=== PATIENT | female | born 1955 | race Caucasian/White ===

== ENCOUNTER 2024-07-22 13:36 | Emergency (ER) | payer OTHER ==
[~2024-07-22] VITALS: Ht 166.4 cm; Wt 75.9 kg
[2024-07-22 14:25] LABS: BASOPHILS % (AUTO) 0.6 % (0-1); EOSINOPHILS # (AUTO) 0.1 X10'3 (0-0.9); EOSINOPHILS % (AUTO) 1.1 % (0-6); HEMATOCRIT 44.6 % (35.0-45.0); HEMOGLOBIN 14.9 g/dl (12.0-16.0); LYMPHOCYTES # (AUTO) 1.7 X10'3 (1.1-4.8); LYMPHOCYTES % (AUTO) 28.3 % (21-51); MEAN CORPUSCULAR HGB CONC 33.4 g/dL (33.0-36.5); MEAN CORPUSCULAR VOLUME 89.8 FL (78-98); MEAN PLATELET VOLUME 8.1 FL (7.4-10.4); MONOCYTES # (AUTO) 0.4 X10'3 (0-0.9); MONOCYTES % (AUTO) 6.1 % (2-12); NEUTROPHILS # (AUTO) 3.9 X10'3 (1.8-7.7); NEUTROPHILS % (AUTO) 63.9 % (42-75); PLATELET COUNT 266 X10'3 (140-440); RED BLOOD COUNT 4.96 X10'6 (4.20-5.60); RED CELL DISTRIBUTION WIDTH 13.9 % (11.5-14.5); WHITE BLOOD COUNT 6.1 X10'3 (4.5-11.0)
[2024-07-22 14:45] LABS: ALBUMIN 4.1 G/DL (3.4-5.0); ANION GAP 10 (8-16); BLOOD UREA NITROGEN 16 MG/DL (7-18); BUN/CREATININE RATIO 18.8 (10.0-20.0); CALCIUM 9.4 MG/DL (8.5-10.1); CHLORIDE 106 MMOL/L (99-107); CREATININE 0.85 MG/DL (0.40-0.90); ETHANOL < 10 MG/DL (<10); GLUCOSE 148 MG/DL (70-104); POTASSIUM 3.5 MMOL/L (3.5-5.1); SODIUM 142 MMOL/L (135-145); THYROID STIMULATING HORMONE 1.33 ulU/ml (0.34-4.50); TOTAL CARBON DIOXIDE 25.9 MMOL/L (24-32); eCRCL 57 ML/MIN; eGFR 66 ML/MIN
[2024-07-22 15:56] LABS: BILIRUBIN,URINE SMALL (Neg); CLARITY,URINE CLEAR (Clear); COLOR,URINE YELLOW (Yellow); GLUCOSE, URINE NEGATIVE (Neg); KETONES,URINE NEGATIVE (Neg); LEUKOCYTE ESTERASE ,URINE SMALL (Neg); NITRITES, URINE NEGATIVE (Neg); OCCULT BLOOD,URINE NEGATIVE (Neg); PH,URINE 5.5 (4.8-8.0); PROTEIN,URINE NEGATIVE (Neg); UROBILINOGEN,URINE 0.2 E.U/dL (0.2-1.0)
[2024-07-22 16:15] LABS: UA COLLECTION TYPE CLN CATCH MIDSTREAM
[2024-07-22 16:16] LABS: URINE AMPHETAMINE SCREEN NEGATIVE (Neg); URINE BARBITUATE SCREEN NEGATIVE (Neg); URINE BENZODIAZEPINES SCREEN POSITIVE (Neg); URINE CANNABINOID SCREEN NEGATIVE (Neg); URINE COCAINE SCREEN NEGATIVE (Neg); URINE METHADONE SCREEN NEGATIVE (Neg); URINE OPIATE SCREEN NEGATIVE (Neg); URINE PHENCYCLIDINE SCREEN NEGATIVE (Neg)
[2024-07-22 16:24] LABS: BACTERIA,URINE FEW /HPF (Neg); RBC,URINE 0-2 /HPF (0-2); SQUAMOUS EPITHELIAL CELL,UR FEW /LPF (FEW)
[2024-07-22] MEDS ORDERED: OXYC-658 PO (16:44)
[2024-07-22] MEDS ORDERED: RIZA10TA98 PO (16:44)
[2024-07-22] MEDS ORDERED: LORA-269 PO (16:44)
[2024-07-22] MEDS: ibuprofen tablet 400 MG TABLET PO ONE (19:40)
[2024-07-22] MEDS ORDERED: RIZATRIPTAN BENZOATE 10 MG PO PRN (19:40)
[2024-07-22] MEDS: LORazepam 1 MG tablet PO PRN (19:40)
[2024-07-22] MEDS: traZODone 50mg tablet PO ONE (21:37)
[2024-07-23 06:00] VITALS: O2SAT 95
[2024-07-23 15:01] VITALS: BP 128/50; PULSE 58; RESP 14; TEMP 96.7
== END 2024-07-23 15:04 ==
LOC: ER 13:37
DX: F32.A Depression, unspecified (principal); R45.851 Suicidal ideations; Z88.5 Allergy status to narcotic agent; Z20.822 Contact with and (suspected) exposure to COVID-19
CPT/HCPCS: 36415; 80048; 80305; 80320; 81001; 84443; 85025; 87811; 99284; 99285